=== PATIENT | female | born 1985 ===

== ENCOUNTER 2024-12-05 05:18 | Day surgery (SDC) | payer OTHER ==
[2024-12-05] MEDS ORDERED: MIDAZOLAM HCL/PF 5 MG/ML VIAL IV ONE (08:15)
[2024-12-05] MEDS ORDERED: MEPERIDINE HCL/PF 50 MG/ML VIAL IV ONE (08:15)
[2024-12-05] MEDS ORDERED: DIPHENHYDRAMINE HCL 50 MG/ML VIAL 1ML IV ONE (08:15)
== END 2024-12-05 11:05 | disposition home or self-care (01) ==
LOC: AMB-ENDOS 05:18
PROVIDERS: ATTEND Surgery
DX: K29.50 Unspecified chronic gastritis without bleeding (principal); R10.13 Epigastric pain; K44.9 Diaphragmatic hernia without obstruction or gangrene; E66.09 Other obesity due to excess calories